=== PATIENT | female | born 1985 | race American Indian/Alaskan Native ===

== ENCOUNTER 2017-01-19 18:34 | Emergency (ER) | payer SELFPAY ==
[2017-01-19 20:24] VITALS: BP 107/66
== END 2017-01-19 21:00 | disposition left against medical advice (07) ==
LOC: ED 18:34
DX: R21 Rash and other nonspecific skin eruption (principal); Z53.21 Procedure and treatment not carried out due to patient leaving prior to being seen by health care provider